=== PATIENT | female | born 1990 | race Caucasian/White ===

== ENCOUNTER 2025-05-07 15:41 | Emergency (ER) | payer OTHER, SELFPAY ==
[2025-05-07 15:43] VITALS: BP 124/80; PULSE 83; RESP 18; TEMP 36.4; O2SAT 98
[2025-05-07 15:50] VITALS: BP 124/80; PULSE 83; RESP 18; TEMP 36.4; O2SAT 98
--- NOTE | 2025-05-07 16:22 | ED.GENADUL_ITS ---
Discharge Plan Disposition Patient Disposition: Home Condition: Stable Discharge Details Clinical Impression: Exposure to bat without known bite, Encounter for prophylactic rabies immune globin Primary Care Provider: Vandana Nolan ED Provider: Winifred Fernandes Home Meds and New Rx's Prescriptions: No Action No Known Home Meds Discharge Instructions Instructions: Rabies (DC) Additional Instructions: You were given the rabies immunoglobulin today in the ER. Please follow-up as directed by the other facility on day 3 7 and 14 as directed. Please return to the ER for any signs of infection or adverse reaction to the injections. Thank you for allowing us to care for you today. Referrals: Vandana oNlan [Primary Care Provider] - Discharge Data Discharge Date/Time-TO BE ENTERED AT DEPARTURE: 05/07/25 18:01 HPI General Mode of arrival: ambulatory . Date/Time Provider Initiated Documentation: 05/07/25 15:56 . Limitations to Documentation: no limitations . Information obtained by: patient, RN notes reviewed and old records reviewed . HPI Narrative: 35-year-old female presents to the ER after waking with a bat in the bedroom and being chased by a bat in her house. She denies any known scratches or bites however recommendation is for the rabies postexposure prophylaxis. Patient was seen previously prior to arrival at offsite hospital and received the first dose of the vaccine however they were out of the immune globulin which is why she presented to this facility. She has also already received the form to return on day 3 7 and 14. Related Data Home Medications ?Medication ?Instructions ?Recorded ?Confirmed Unknown [No Known Home Meds] 05/07/25 05/07/25 Allergies Allergy/AdvReac Type Severity Reaction Status Date / Time amoxicillin Allergy Mild Hives Verified 05/07/25 15:49 Milk Containing Products Allergy Mild Skin Rash Verified 05/07/25 15:49 (Dairy) General Stated Complaint: GenMedical CASPER: 4 Review of Systems All systems reviewed & are unremarkable except as noted in HPI and below Exam Narrative Exam Narrative: Constitutional: Alert and oriented x3. Appears stated age. Normal body habitus. Head: Normocephalic, no trauma. Eyes: Pupils PERRL, Red reflex noted, EOM's intact. Eyelids symmetrical without lesions, discharge, or swelling. ENT: Bilateral TM's WNL, External ear normal to inspection, no mastoid TTP, swelling, or erythema, Nasal turbinates WNL, no nasal discharge. Normal dentition, Posterior pharynx WNL, no exudate. Chest: RRR, Normal S1, S2, distal pulses intact. Resp: Lungs clear to auscultation bilaterally, no wheezes, rales, or rhonchi. Abdomen: Soft, non-distended, Normoactive bowel sounds all 4 quads. Musculoskeletal: Normal gait, Moves all 4 extremities without difficulty. Skin: No suspicious rashes or lesions. Capillary refill less than 2 sec. Neurologic: Cranial nerves II-XII intact. Alert and oriented x 3. Motor: No deficits noted. Sensory: Intact bilaterally all 4 extremities. Hematologic/Lymphatic: No ecchymosis, no lymphadenopathy. Course Vital Signs Vital signs: Vital Signs Temperature 36.4 C 05/07/25 15:43 Pulse 83 05/07/25 15:43 Respiratory Rate 18 05/07/25 15:43 Blood Pressure 124/80 05/07/25 15:43 Pulse Oximetry 98 05/07/25 15:43 Temperature 36.4 C 05/07/25 15:50 Temperature Source Oral 05/07/25 15:50 Pulse 83 05/07/25 15:50 Respiratory Rate 18 05/07/25 15:50 Blood Pressure 124/80 05/07/25 15:50 Blood Pressure Position Supine 05/07/25 15:50 Pulse Oximetry 98 05/07/25 15:50 Oxygen Delivery Method Room Air 05/07/25 15:50 Oxygen Flow Rate 0 05/07/25 15:50 Pain Level 0 05/07/25 15:50 Medical Decision Making 35-year-old female presents to the ER after waking with a bat in the bedroom and being chased by a bat in her house. She denies any known scratches or bites however recommendation is for the rabies postexposure prophylaxis. Patient was seen previously prior to arrival at offsite hospital and received the first dose of the vaccine however they were out of the immune globulin which is why she presented to this facility. She has also already received the form to return on day 3 7 and 14. Rabies immunoglobulin ordered 20 mg/kg for postexposure prophylaxis protocol. Patient had no reaction to the injection, given instructions and follow-up care. This text was generated using [employer] system, please disregard any oddities of phrase or misspellings. Quality:SDOH Health Related Social Needs: No Data to Display PFSH All Active Problems (Updated 05/07/25 @ 17:02 by Winifred Fernandes NP) Encounter for prophylactic rabies immune globin (Acute) Exposure to bat without known bite (Acute) Social History Smoking/Tobacco Use Status: Never Smoking risk assessment performed?: Yes Alcohol Intake: current Alcohol Intake frequency: a few times a week Substance use type: does not use Housing: house Do you feel safe at home: Yes Do you feel safe in your relationship?: Yes
[2025-05-07] MEDS: Rabies Immune Globulin 1,500 UNIT/5 ML VIAL 1350 UNITS IM (16:56)
== END 2025-05-07 18:01 | disposition home or self-care (01) ==
PROVIDERS: Emergency Provider Registered Nurse Emergency; PCP Nurse Practitioner Family
DX: Z20.3 Contact with and (suspected) exposure to rabies (principal)
CPT/HCPCS: 90375; 90471; 96372; 99282